=== PATIENT | male | born 1945 | race Caucasian/White ===

== ENCOUNTER 2018-09-10 17:32 | Emergency (ER) | payer MEDICARE, OTHER ==
[2018-09-10] MEDS ORDERED: SODIUM CHLORIDE 0.9% 1000ML 1,000 ML IV ONE (18:19)
[2018-09-10] MEDS ORDERED: ACETAMINOPHEN EXTRA STRENGTH 500 MG TABLET ONE (18:20)
[2018-09-10] MEDS ORDERED: LEVOFLOXACIN 500 MG/D5W 100 ML 100 ML ONE (18:20)
[2018-09-10 18:23] LABS: BASOPHILS % (AUTO) 0.3 % (0.0-5.0); HEMATOCRIT 50.9 % (42-54); LYMPHOCYTES % (AUTO) 4.3 % (21.0-51.0); MEAN CORPUSCULAR HEMOGLOBIN 29.5 pg (27.0-33.0); MEAN CORPUSCULAR HGB CONC 33.8 g/dL (32.0-36.0); MEAN CORPUSCULAR VOLUME 87.5 fL (79-99); MONOCYTES % (AUTO) 8.5 % (3.0-13.0); NEUTROPHILS % (AUTO) 86.9 % (40.0-77.0); NUCLEATED RED BLOOD CELLS 0.1 % (0.0-0.19); PLATELET COUNT (AUTO) 130 K/uL (130-400); RED BLOOD CELL COUNT(AUTO) 5.82 MIL/uL (4.50-6.20); RED CELL DISTRIBUTION WIDTH 13.3 % (11.0-15.5); WHITE BLOOD COUNT (AUTO) 11.9 K/uL (4.8-10.8)
[2018-09-10 18:53] LABS: CREATININE 1.1 mg/dL (0.5-1.5)
[2018-09-10 19:03] LABS: ALBUMIN 4.1 g/dL (3.5-5.0); BILIRUBIN,TOTAL 1.3 mg/dL (0.2-1.0); TOTAL PROTEIN, SERUM 7.9 g/dL (6.0-8.3)
== END 2018-09-10 19:29 | disposition left against medical advice (07) ==
LOC: EDH 17:32
DX: R00.0 Tachycardia, unspecified (principal); R50.9 Fever, unspecified; I10 Essential (primary) hypertension; Z90.49 Acquired absence of other specified parts of digestive tract
CPT/HCPCS: 36415; 71045; 80053; 83605; 83690; 84484; 85025; 87804 ×2; 93005; 96365; 96366; 99284; J1956; J7030

== ENCOUNTER 2018-09-18 01:11 | Observation (INO) | payer OTHER ==
[~2018-09-18] VITALS: Ht 180.3 cm; Wt 81.6 kg
[2018-09-18 01:47] LABS: BASOPHILS % (AUTO) 0.4 % (0.0-5.0); HEMATOCRIT 45.8 % (42-54); LYMPHOCYTES % (AUTO) 4.9 % (21.0-51.0); MEAN CORPUSCULAR HEMOGLOBIN 29.7 pg (27.0-33.0); MEAN CORPUSCULAR HGB CONC 33.9 g/dL (32.0-36.0); MEAN CORPUSCULAR VOLUME 87.6 fL (79-99); MONOCYTES % (AUTO) 7.9 % (3.0-13.0); NEUTROPHILS % (AUTO) 86.8 % (40.0-77.0); PLATELET COUNT (AUTO) 145 K/uL (130-400); RED BLOOD CELL COUNT(AUTO) 5.24 MIL/uL (4.50-6.20); RED CELL DISTRIBUTION WIDTH 13.2 % (11.0-15.5); WHITE BLOOD COUNT (AUTO) 9.8 K/uL (4.8-10.8)
[2018-09-18 01:53] LABS: INR 1.05 (0.85-1.15); PARTIAL THROMBOPLASTIN TIME 26.1 SEC (26.3-35.5)
[2018-09-18 01:59] LABS: ALANINE AMINOTRANSFERASE 75 U/L (12-78); ALBUMIN 3.5 g/dL (3.5-5.0); ASPARTATE AMINOTRANSFERASE 44 U/L (10-37); BILIRUBIN,TOTAL 1.2 mg/dL (0.2-1.0); CARBON DIOXIDE 20 mmol/L (21-32); CHLORIDE 99 mmol/L (101-111); CREATINE KINASE, TOTAL 268 U/L (21-232); CREATININE 1.3 mg/dL (0.5-1.5); GLOMERULAR FILTR. RATE CALC 58 mL/min (>60); GLUCOSE,RANDOM 163 mg/dL (70-105); MYOGLOBIN 717 ng/mL (10-92); POTASSIUM 3.7 mmol/L (3.5-5.1); SODIUM SERUM 132 mmol/L (136-145); TOTAL PROTEIN, SERUM 6.7 g/dL (6.0-8.3); TROPONIN I < 0.04 ng/mL (0.00-0.06); UREA NITROGEN, BLOOD 18 mg/dL (7-18)
[2018-09-18] MEDS ORDERED: SODIUM CHLORIDE 0.9% 1000ML 3,000 ML IV ONE (02:07)
[2018-09-18 02:28] LABS: APPEARANCE,URINE Clear (CLEAR); BILIRUBIN,URINE Negative (NEGATIVE); COLOR,URINE Yellow (YELLOW); GLUCOSE, URINE (UA) Negative (NEGATIVE); KETONES,URINE 15 mg/dL (NEGATIVE); LEUKOCYTE ESTERASE ,URINE Negative (NEGATIVE); NITRATE,URINE Negative (NEGATIVE); OCCULT BLOOD,URINE Small (NEGATIVE); PH,URINE 6.5 (5.0-8.0); PROTEIN,URINE Trace (NEGATIVE)
[2018-09-18] MEDS ORDERED: ZOSYN 3.375GM+NS 50ML 50 ML IV ONE (02:32)
[2018-09-18] MEDS ORDERED: ACETAMINOPHEN 325 MG TAB ONE (02:33)
[2018-09-18] MEDS ORDERED: SODIUM CHLORIDE 0.9% 100 ML IV ONE (02:33)
[2018-09-18 02:59] LABS: BACTERIA,URINE None Seen /HPF (None Seen); SQUAMOUS EPITHELIAL CELL,UR Rare /HPF (0-2); WBC,URINE None Seen /HPF (0-1)
[2018-09-18] MEDS: SODIUM CHLORIDE 0.9% 1000ML 1,000 ML IV SCH ×2 (04:27→14:45)
[2018-09-18] MEDS ORDERED: ONDANSETRON HCL 4 MG/2 ML VIAL IV PRN (04:30)
[2018-09-18] MEDS: ZOSYN 3.375GM+NS 50ML 50 ML IV SCH ×4 (05:00→20:18)
[2018-09-18] MEDS ORDERED: SODIUM CHLORIDE 0.9% 1000ML 1,000 ML IV ONE (08:09)
[2018-09-18 08:48] VITALS: BP 154/88
[2018-09-18] MEDS: ENOXAPARIN SODIUM 40 MG/0.4 ML SYRINGE SQ SCH (09:00)
[2018-09-18] MEDS ORDERED: ENOXAPARIN SODIUM 40 MG/0.4 ML SYRINGE SQ SCH (09:00)
[2018-09-18] MEDS: FAMOTIDINE 20MG TAB 20 MG TAB PO SCH ×2 (09:00→20:17)
[2018-09-18 12:04] VITALS: BP 167/93
[2018-09-18] MEDS: ACETAMINOPHEN 325 MG TAB PO PRN (15:34)
[2018-09-18 16:14] VITALS: BP 168/85
[2018-09-18 20:00] VITALS: BP 144/71
[2018-09-19] VITALS: BP 146/79
[2018-09-19] MEDS: SODIUM CHLORIDE 0.9% 1000ML 1,000 ML IV SCH (01:50)
[2018-09-19] MEDS: ACETAMINOPHEN 325 MG TAB PO PRN (02:49)
[2018-09-19 04:00] VITALS: BP 110/59
[2018-09-19] MEDS: ZOSYN 3.375GM+NS 50ML 50 ML IV SCH (04:45)
[2018-09-19 04:57] LABS: HEMATOCRIT 41.4 % (42-54); MEAN CORPUSCULAR HEMOGLOBIN 30.3 pg (27.0-33.0); MEAN CORPUSCULAR VOLUME 86.6 fL (79-99); PLATELET COUNT (AUTO) 127 K/uL (130-400); RED BLOOD CELL COUNT(AUTO) 4.79 MIL/uL (4.50-6.20); RED CELL DISTRIBUTION WIDTH 13.7 % (11.0-15.5); WHITE BLOOD COUNT (AUTO) 10.8 K/uL (4.8-10.8)
[2018-09-19 05:05] LABS: CREATININE 1.2 mg/dL (0.5-1.5); POTASSIUM 3.4 mmol/L (3.5-5.1)
[2018-09-19] MEDS ORDERED: POTASSIUM CHLORIDE 20 MEQ ERTAB PO ONE (05:10)
[2018-09-19] MEDS ORDERED: POTASSIUM CHLORIDE 20 MEQ ERTAB PO PRN (05:15)
[2018-09-19] MEDS ORDERED: POTASSIUM CHLORIDE 20MEQ/100ML 100 ML IV PRN (05:15)
[2018-09-19] MEDS ORDERED: POTASSIUM CHLORIDE 10% ELIXIR 20 MEQ/15 ML UDCUP PO PRN (05:15)
[2018-09-19] MEDS ORDERED: LIDOCAINE HCL-MPF 1% 2ML VIAL IVP PRN (05:15)
[2018-09-19 08:03] VITALS: BP 150/77
[2018-09-19] MEDS: ENOXAPARIN SODIUM 40 MG/0.4 ML SYRINGE SQ SCH (09:00)
[2018-09-19] MEDS: FAMOTIDINE 20MG TAB 20 MG TAB PO SCH (09:20)
--- NOTE | 2018-09-19 09:20 | NUR ---
Pt refused lovenox. Notified Jan Johnson NP.
--- NOTE | 2018-09-19 10:00 | NUR ---
Dr. Malik in room for daily rounds with pt. Notified her of EKG results, and she had in depth conversation with pt regarding need for further intervention such as cardiac monitoring, neuro consult and ct scan of lumbar spine to determine cause of his frequent falls, unsteady gait. Pt is adamant that he not need to be here and that he will be going home today. MD informed him that it is within his rights but he will be leaving against medical advice should he choose to do so.
[2018-09-19] MEDS ORDERED: GADODIAMIDE 5 MMOL/10 ML VIAL 5 MMOL/10 ML ML IV ONE (11:06)
--- NOTE | 2018-09-19 11:30 | NUR ---
in [facility], stated she tried talking with pt to convince him to stay in hospital, but he remains adamant about leaving AMA. She stated she will be going home to "take a break" from pt, and will be back for him when he is ready lo leave should he ultimately decide to do so.
[2018-09-19 12:00] VITALS: BP 139/70
--- NOTE | 2018-09-19 20:25 | NUR ---
Appropriate AMA forms signed and witnessed. Pt discharged via private car with at side. Addendum: 09/19/18 at 2025 by GERMÁN KUNZ RN RN Above noted event took place at 1530, not 2025.
== END 2018-09-19 15:20 | disposition left against medical advice (07) ==
LOC: EDH 01:11 → EDHIP 04:00 → 4CH 08:30
PROVIDERS: ADMIT Internal Medicine; ATTEND Internal Medicine
DX: R50.9 Fever, unspecified (principal); R00.0 Tachycardia, unspecified; R41.0 Disorientation, unspecified; I10 Essential (primary) hypertension; Z96.632 Presence of left artificial wrist joint; Z79.01 Long term (current) use of anticoagulants
CPT/HCPCS: 36415 ×2; 70450; 71045; 72100; 80048; 80053; 81001; 82550; 83605 ×2; 83874; 84484; 85025; 85027; 85610; 85730; 87040; 87088; 87804 ×2; 93005 ×2; 96361; 96365; 96366 ×2; 97116; 97161; 99284; G0378 ×35; G8978; G8979; G8980; G8981; G8982; G8983; J2543 ×4; J7030 ×2; A9579